=== PATIENT | female | born 1975 | race Asian ===

== ENCOUNTER 2016-12-13 14:00 | Emergency (ER) | payer OTHER ==
[2016-12-13] MEDS ORDERED: HYDROCODONE/ACETAMINOPHEN 5/325MG TABLET ONE (14:35)
[2016-12-13] MEDS ORDERED: PREDNISONE 20 MG TABLET ONE (14:35)
[2016-12-13 15:11] LABS: PH,URINE 6.5 (5.0-8.0); SPECIFIC GRAVITY 1.015 (1.001-1.030); URINE APPEARANCE CLEAR; URINE BILIRUBIN NEGATIVE (NEGATIVE); URINE BLOOD NEGATIVE (NEGATIVE); URINE COLOR YELLOW; URINE GLUCOSE (UA) NEGATIVE (NEGATIVE); URINE LEUKOCYTE ESTERASE NEGATIVE (NEGATIVE); URINE NITRITE NEGATIVE (NEGATIVE); URINE PROTEIN NEGATIVE (NEGATIVE); URINE UROBILINOGEN NORMAL (0-1 mg/dl)
[2016-12-13 17:51] LABS: HCG,QUALITATIVE URINE NEGATIVE
== END 2016-12-13 16:01 | disposition home or self-care (01) ==
LOC: ED 14:00
DX: M54.32 Sciatica, left side (principal); M25.552 Pain in left hip; M48.00 Spinal stenosis, site unspecified
CPT/HCPCS: 81025; 81003; 99283 ×2; 51798; J7512; A9270